=== PATIENT | female | born 1945 | race Native Hawaiian/Other Pacific Islander ===

== ENCOUNTER 2017-03-14 09:12 | Outpatient (CLI) | payer OTHER ==
[~2017-03-14 09:12] MED LIST: BENICAR HCT1 TAB PO; ROSU10TA PO; UNITH DIRECT50 MCG PO
[2017-03-14 10:11] LABS: PLATELET COUNT 256 K/uL (152-353)
[2017-03-14 10:22] LABS: SODIUM 142 mmol/L (136-145)
== END 2017-03-14 19:05 | disposition home or self-care (01) ==
LOC: LABW 09:12
PROVIDERS: Internal Medicine
DX: I10 Essential (primary) hypertension (principal); E55.9 Vitamin D deficiency, unspecified; E78.00 Pure hypercholesterolemia, unspecified; E03.8 Other specified hypothyroidism; R82.99 Other abnormal findings in urine
CPT/HCPCS: 36415; 80053; 80061; 81000; 82306; 84439; 84443; 85027; 87077; 87086; 87088; 87186

== ENCOUNTER 2018-01-18 09:37 | Outpatient (CLI) | payer OTHER ==
[2018-01-18 10:02] LABS: PLATELET COUNT 266 K/uL (152-353)
[2018-01-18 10:25] LABS: POTASSIUM 3.5 mmol/L (3.6-5.2)
== END 2018-01-18 20:19 | disposition home or self-care (01) ==
LOC: LABW 09:37
PROVIDERS: Internal Medicine
DX: I10 Essential (primary) hypertension (principal); E78.00 Pure hypercholesterolemia, unspecified; E55.9 Vitamin D deficiency, unspecified; R82.99 Other abnormal findings in urine
CPT/HCPCS: 36415; 80053; 80061; 81000; 82306; 84439; 84443; 85027; 87077; 87086; 87088; 87186

== ENCOUNTER 2018-06-19 15:20 | Outpatient (CLI) | payer OTHER | END 2018-06-19 22:10 | disposition home or self-care (01) | LOC: LABW 15:20 | DX: R30.0 Dysuria (principal) | CPT/HCPCS: 81000 ==

== ENCOUNTER 2022-04-19 10:05 | Outpatient (CLI) | payer OTHER | END 2022-04-19 18:49 | disposition home or self-care (01) | LOC: RESP 10:05 | PROVIDERS: ATTEND Specialist | DX: Z01.810 Encounter for preprocedural cardiovascular examination (principal); R60.0 Localized edema; I10 Essential (primary) hypertension; Z91.89 Other specified personal risk factors, not elsewhere classified ==